=== PATIENT | male | born 1985 ===

== ENCOUNTER 2021-02-20 19:18 | Emergency (ER) | payer BC ==
[~2021-02-20] VITALS: Ht 180.3 cm; Wt 118.2 kg
[~2021-02-20 19:18] MED LIST: CEPHALEXIN500 M1 PO; NO HOME MEDICATIONS
[2021-02-20 19:27] VITALS: TEMP 97.7
[2021-02-20 20:25] LABS: BASO % 0.4 % (0.0-2.0); EOS # 0.1 (0.0-0.7); GRAN # 5.4 (1.4-6.5); GRAN % 66.5 % (42.2-75.2); HEMATOCRIT 41.3 % (42.0-52.0); HEMOGLOBIN 13.5 g/dl (13.5-18.0); LYMPH # 2.1 (1.2-3.4); LYMPH % 25.6 % (20.0-51.0); MEAN CELL VOLUME 90 fl (80.0-100.0); MEAN CORPUSCULAR HEMOGLOBIN 29 pg (27.0-31.0); MEAN CORPUSCULAR HGB CONC 33 g/dl (33.0-37.0); MEAN PLATELET VOLUME 10.8 fl (7.4-10.4); MONO # 0.5 (0.1-0.6); MONO % 6.3 % (1.7-9.3); PLATELET COUNT 247 K/mm3 (130-400); RED BLOOD COUNT 4.59 M/mm3 (4.20-5.60); REDCELL DISTRIBUTION WIDTH-CV 13.6 % (11.5-14.5)
[2021-02-20 20:37] LABS: ALANINE AMINOTRANSFERASE 33 U/L (4-49); ALBUMIN 4.1 gm/dL (3.5-5.0); ALKALINE PHOSPHATASE 75 U/L (50-136); ANION GAP 4 mmol/L (7-16); AST,SGOT 46 U/L (15-37); BILIRUBIN,TOTAL 0.2 mg/dL (0.0-1.0); BLOOD UREA NITROGEN 13 mg/dL (9-20); CALCIUM 8.7 mg/dL (8.4-10.2); CARBON DIOXIDE 31 mmol/L (22-30); CHLORIDE 103 mmol/L (98-107); CREATININE, serum 1.02 (0.66-1.25); GLUCOSE 99 mg/dL (74-106); POTASSIUM 3.6 mmol/L (3.4-5.0); SODIUM 138 mmol/L (137-145); TOTAL PROTEIN 7.8 gm/dL (6.4-8.2)
[2021-02-20 20:39] LABS: TROPONIN-I < 0.012 ng/mL (0.000-0.035)
[2021-02-20 22:16] VITALS: BP 132/74; PULSE 78
== END 2021-02-20 22:12 | disposition home or self-care (01) ==
LOC: COL.ER 19:18
PROVIDERS: Nurse Practitioner Primary Care
DX: R07.89 Other chest pain (principal)
CPT/HCPCS: J1885